=== PATIENT | male | born 1975 | race Caucasian/White ===

== ENCOUNTER 2023-08-25 15:02 | Emergency (ER) | payer OTHER, SELFPAY ==
[2023-08-25] VITALS (193 sets, daily range): BP systolic 104–201; BP diastolic 55–123; PULSE 63–88; RESP 12–35; O2SAT 87–96
--- NOTE | 2023-08-25 15:00 | DI.RAD_ITS ---
Exam(s) XR CHEST 2V PA LATERAL EXAM: XR CHEST 2V PA LATERAL CLINICAL HISTORY: chest pain TECHNIQUE: 2D digital imaging was performed of the chest. Two images were obtained. PA and lateral views were obtained. COMPARISON: No exams were available for comparison FINDINGS: MEDIASTINUM: Normal. HEART: Cardiomegaly. PULMONARY VASCULATURE: Normal. LUNGS: Clear. PLEURAL SPACE: No pleural effusion or pneumothorax. BONE:Within normal limits for the patient's age. OTHER FINDINGS:Normal. IMPRESSION: 1. No acute pulmonary findings. 2. Cardiomegaly. DATA REPOSITORY: RADIATION DOSE DELIVERED:
--- NOTE | 2023-08-25 15:00 | RT.EKG_ITS ---
APPROVED REPORT Exam: Resting ECG Reason for Exam: Chest Pain Patient Location: E HR:69 bpm ECG Measurements Heart Rate 69 AXIS IN 162 P 4 QRSd 95 QRS -13 QT 432 T 142 QTc 463 Conclusion Sinus rhythm...normal P axis, V-rate 60- 99 Abnormal T, consider ischemia, lateral leads...T <-0.20mV, I aVL V5 V6 sinus rhtyhm, left axis, normal intervals, t wave inverions I aVL V4 V5 V6
--- NOTE | 2023-08-25 15:00 | RT.EKG_ITS ---
APPROVED REPORT Exam: Resting ECG Reason for Exam: chest pain Patient Location: E HR:84 bpm ECG Measurements Heart Rate 84 AXIS OH 176 P 18 QRSd 99 QRS -29 QT 409 T 113 QTc 485 Conclusion Sinus rhythm...normal P axis, V-rate 60- 99 Probable LVH with secondary repol abnrm...multiple LVH criteria Physician: No stemi, improvement of t wave inversions in lateral leads
--- NOTE | 2023-08-25 15:15 | DI.RAD_ITS ---
Exam(s) XR SHOULDER LT COMPLETE 2+V EXAM: XR SHOULDER LT COMPLETE 2+V CLINICAL HISTORY: chroniic pain. TECHNIQUE: 2D digital imaging was performed. Three views. COMPARISON: CR XR SHOULDER RT COMPLETE 2+V from 08/25/2023 FINDINGS: BONES: No acute fracture is present. No bony destructive lesion is seen. JOINTS: No dislocation present. Widening of the AC joint with some adjacent cystic change. Findings could indicate acromioclavicular joint arthritis. Glenohumeral joint is maintained.. SOFT TISSUE: Normal. IMPRESSION: AC joint arthritis. DATA REPOSITORY: RADIATION DOSE DELIVERED:
--- NOTE | 2023-08-25 15:15 | DI.RAD_ITS ---
Exam(s) XR SHOULDER RT COMPLETE 2+V EXAM: XR SHOULDER RT COMPLETE 2+V CLINICAL HISTORY: chronic pain. TECHNIQUE: 2D digital imaging was performed. Five views. COMPARISON: No exams were available for comparison FINDINGS: BONES: No acute fracture is present. No bony destructive lesion is seen. JOINTS: No dislocation present. Minimal spurring at AC joint. Spurring at the rim of the glenoid. Glenohumeral joint space is maintained. SOFT TISSUE: Normal. IMPRESSION: Mild degenerative changes. DATA REPOSITORY: RADIATION DOSE DELIVERED:
--- NOTE | 2023-08-25 15:22 | W.ED.GENAD ---
Discharge Plan Discharge Details Chief Complaint: Chest Pain Clinical Impression: CHF (congestive heart failure), Non-ST elevation [place] (NSTEMI), Hypertension Primary Care Provider: None,None ED Provider: Franky Kennedy Home Meds and New Rx's Prescriptions: No Action No Known Home Meds HPI General Date/Time Provider Initiated Documentation: 08/25/23 15:07. HPI Narrative: 48-year-old male history of hypertension and obesity presents with substernal chest pain rating to neck has been intermittent over the last couple of days worse today, took 4 aspirin before arrival. Related Data Home Medications Medication Instructions Recorded Confirmed Unknown [No Known Home Meds] 08/25/23 08/25/23 Allergies Allergy/AdvReac Type Severity Reaction Status Date / Time No Known Allergies Allergy Unverified 08/25/23 15:12 General Stated Complaint: Chest Pain RICKIE: 2 Review of Systems Narrative: Review of Systems Constitutional: negative Eyes: negative ENT: negative Cardiovascular: Chest pain Respiratory: negative Gastrointestinal: negative : negative Musculoskeletal: negative Skin: negative Neurologic: negative Psych: negative Exam Narrative Exam Narrative: Physical Examination General: alert, awake, cooperative, resting comfortably, no acute distress HEENT: normocephalic, atraumatic; PERRL, EOM intact, conjunctiva normal; no nasal discharge; moist mucous membranes, oral and pharyngeal mucosa normal, tolerating secretions Neck: supple, trachea midline; full ROM Chest: normal to inspection Respiratory: normal respiratory effort, speaking in full sentences, clear to auscultation, no wheezing, rales or rhonchi Cardiac: regular rate, regular rhythm, S1S2 intact, no murmurs rubs or gallops GI: abdomen soft, non-tender, non-distended; no palpable mass or hepatosplenomegaly Skin: no lesions, rashes or trauma appreciated Neuro: AAOx3, normal speech, moving all extremities Extremities: Edema to bilateral ankles Psych: Appropriate mood and affect Course Vital Signs Vital signs: Vital Signs Pulse 68 08/25/23 15:06 Respiratory Rate 16 08/25/23 15:06 Blood Pressure 201/111 H 08/25/23 15:06 Temperature Source Temporal Artery Scan 08/25/23 15:06 Pulse 68 08/25/23 15:06 Respiratory Rate 18 08/25/23 15:13 Respiratory Effort Normal 08/25/23 15:13 Respiratory Depth Normal 08/25/23 15:13 Respiratory Pattern Normal 08/25/23 15:13 Blood Pressure 201/111 H 08/25/23 15:06 Blood Pressure Position Sitting 08/25/23 15:06 Oxygen Delivery Method Room Air 08/25/23 15:06 Oxygen Flow Rate 0 08/25/23 15:06 Pain Level 8 08/25/23 15:13 Medical Decision Making 48-year-old male history of obesity, hypertension, presents with chest pain over the last several days substernal radiating to neck worse today, noted to be hypertense on arrival, pale and diaphoretic; patient has pitting edema to bilateral ankles, EKG sinus rhythm left axis with T wave inversions lead I and aVL as well as V4 V5 V6 consider high lateral ischemia NSTEMI versus unstable angina versus aortic pathology such as aneurysm or dissection lower suspicion for PE or pneumothorax or pneumonia patient already took 4 x 81 mg aspirin will allow patient to get comfortable in bed will repeat blood pressure still persistently high will administer nitro sublingual will obtain basic labs troponin BNP electrolytes chest x-ray, patient requesting bilateral x-ray of his shoulders for chronic shoulder pain. 17: 24 evidence of NSTEMI given elevated troponin EKG changes and evidence of component of CHF. Have contacted [facility] to speak with cardiology for transfer for NSTEMI they are discussing case with cardiology team as they are at capacity, was able to speak with [facility] transfer center who are at capacity and were unable to connect me with cardiology they recommended calling back tomorrow. 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 Quality:SDOH Health Related Social Needs: No Data to Display PFSH All Active Problems (Updated 08/25/23 @ 17:43 by Franky Kennedy MD) Hypertension (Chronic) Non-ST elevation [place] (NSTEMI) (Acute) CHF (congestive heart failure) (Chronic) Social History Smoking/Tobacco Use Status: Never Smoking risk assessment performed?: Yes Alcohol Intake: never Drug use: Never Substance use type: does not use
[2023-08-25 15:24] LABS: Abs Immature Grans 0.02 10^3/uL (0.0-0.06); Absolute Basophil Count 0.06 10^3/uL (0.0-0.2); Absolute Eosinophil Count 0.19 10^3/uL (0.0-0.7); Absolute Lymphocyte Count 1.59 10^3/uL (1.2-3.4); Absolute Monocyte Count 0.86 10^3/uL (0.1-0.8); Absolute Neutrophil Count 6.14 10^3/uL (1.2-6.7); Basophils % 0.7 %; Eosinophils % 2.1 %; HCT 47.8 % (40.0-50.0); HGB 14.1 g/dL (13.5-17.5); Immature Grans % 0.2 %; Lymphocytes % 17.9 %; MCH 23.5 pg (27.0-33.0); MCHC 29.5 % (32.0-36.0); MCV 80 fL (80-95); Monocytes % 9.7 %; Neutrophils % 69.4 %; Platelet Count 247 10^3/uL (130-400); RBC 6.01 10^6/uL (4.36-5.78); RDW 18.4 % (11.8-14.1); RDW-SD 49.4 fL; WBC 8.86 10^3/uL (4.4-10.8)
[2023-08-25 15:38] LABS: INR 1.1 (0.9-1.1); PTT Activated 26.2 sec (23.6-32.8); Prothrombin Time 10.9 sec (9.1-11.1)
[2023-08-25 15:45] LABS: Diff Comment RBC Morph Reviewed
[2023-08-25 15:46] LABS: Anisocytosis 1+; Hypochromasia 1+
[2023-08-25 16:23] LABS: ALT 32 U/L (16-63); AST 24 U/L (15-37); Albumin 3.4 g/dL (3.4-5.0); Alkaline Phosphatase 72 U/L (46-116); Anion Gap 6.9 mmol/L (3-11); BUN 19 mg/dL (7-18); Bilirubin, Total 0.45 mg/dL (0.2-1.0); CO2 31.1 mmol/L (21.0-32.0); CREATININE 1.8 mg/dL (0.70-1.30); Chloride 103 mmol/L (98-107); Estimated GFR 45.57 (mL/min/1.73m2); Glucose 93 mg/dL (74-106); NT-proBNP 2528 pg/mL (<300); Potassium 3.3 mmol/L (3.5-5.1); Sodium 141 mmol/L (136-145); TSH (W/Ref FT4) 11.13 uIU/mL (0.36-3.74); Total Protein 7.5 g/dL (6.4-8.2)
[2023-08-25 16:25] LABS: Troponin I 113 ng/L (< or =60)
[2023-08-25 16:41] LABS: FREE T4 0.94 ng/dL (0.76-1.46)
[2023-08-25] MEDS: Atorvastatin 40 MG TAB 80 MG PO (17:20)
[2023-08-25] MEDS: Clopidogrel 300 MG TAB PO ×2 (17:20→19:05)
[2023-08-25] MEDS: Heparin in 0.45% NaCl 25,000 UNIT/250 ML BAG 10 UNIT IV (17:21)
[2023-08-25] MEDS: niCARdipine 25 MG in Normal Saline 240 ML 50 MG IV (17:23)
[2023-08-25] MEDS: Furosemide 40 MG/4 ML VIAL IVP (17:57)
[2023-08-25] MEDS: nitroGLYcerin 0.4 MG TAB SL (18:10)
[2023-08-25] MEDS: Furosemide 20 MG/2 ML VIAL IVP (18:28)
[2023-08-25 18:39] LABS: Troponin I 95 ng/L (< or =60)
[2023-08-25] MEDS: Aspirin 325 MG TAB PO (19:05)
[2023-08-25] MEDS: niCARdipine 25 MG in Normal Saline 240 ML 125 MG IV (20:10)
--- NOTE | 2023-08-25 21:10 | ED.PROG_ITS ---
Date of service: 08/25/23 Time of Service: 21:10 Medical Decision Making Patient was signed out to me by my colleague Dr. Damian Rogel. Please refer to his HPI, physical exam, assessment and plan. Patient has a history of hypertension, obesity, who presents today for evaluation of chest pain. Patient states that over the last day or so he has had substernal chest pain radiating to the neck center of his chest. He did take 4 aspirin prior to arrival. He denies any syncope, vomiting or diarrhea. He denies any tearing or ripping sensation. He was seen by my colleague and was noted to have notable hypertension with a blood pressure of 201/111. EKG demonstrated some T wave inversions and minimal depressions in the lateral leads, he was pale and diaphoretic upon arrival. Workup was started and demonstrated an elevated troponin, chest x-ray normal. Labs otherwise stable. He was slightly hypoxic a t 91% initially, he was started on 2 L of supplemental oxygen, because of his notable blood pressure and elevated troponin he was started on nicardipine drip for management of this which brought his pressure down to a normotensive level. He was given nitroglycerin which helped improve his chest pain. He was heparinized. [facility] [[email or web address] was contacted and recommends transfer they do not have any beds available at this time. [facility] was contacted as well and I discussed the case with Dr. Stevens, who also recommends transfer to another facility for prompt management. Did load with an additional 300 mg of Plavix here. He got 600 mg total as recommended by [facility]. He did initially get 40 of Lasix, but did get slightly more hypoxic and with his pitting edema 20 additional Lasix was given. He did get atorvastatin as well and is aspirin was received. She feels that the patient should get a cardiac catheterization secondary to his risk factor symptoms and EKG and troponin findings. I did discuss with the patient staying here until a bed opens up versus transfer, we also discussed risks and benefits of transfer versus staying for prolonged status here at [facility]. [facility] We did contact [facility] and I spoke with Dr. Samayoa, he agrees with the assessment and plan and accepts the patient for transfer. Patient will be transferred via medic level transport emergently secondary to his nicardipine and heparin drip, cardiac risk factors, and [facility]'s recommendations. I have extensively reviewed the treatment plan with the patient. I have addressed all patient concerns at this time. I have also discussed the plan with the admitting physician and they agree with the current assessment and plan and have agreed to assume responsibility for the patient. All parties demonstrate verbal understanding and agreement with our assessment and plan at this time. The documentation in this chart was dictated using [employer] dictation software. Please excuse any dictation errors. At time of transfer the patient was reassessed and continued to demonstrate No signs of acute respiratory distress requiring intubation, hemodynamic instability requiring pressor support, or rapidly declining mental status. Quality:SDOH Health Related Social Needs: No Data to Display Critical Care Time Critical Care Time Critical Care Time: Yes Total Critical Care Time: 60 Attestation: Upon my evaluation, this patient had a high probability of imminent or life- threatening deterioration, which required my direct attention, intervention, and personal management. I have personally provided 60 minutes of critical care time exclusive of time spent on separately billable procedures. Time includes review of laboratory data, radiology results, discussion with consultants, and monitoring for potential decompensation. Interventions were performed as documented. Sign Out Sign Out Data: Sign Out Comment: NSTEMI, CHF, [facility], [facility] not taking cases; nicard drip started, heparin started, lasix clopidogrel statin asa given Last updated by Franky Kennedy MD at 08/25/23 17:45 Discharge Plan Disposition Patient Disposition: Transfer-Acute Inpatient Care Specific Acute Inpt Facility: [facility] Condition: Serious Discharge Details Chief Complaint: Chest Pain Clinical Impression: CHF (congestive heart failure), Non-ST elevation [place] (NSTEMI), Hypertension Primary Care Provider: None,None ED Provider: Kendall Alcala Home Meds and New Rx's Prescriptions: No Action No Known Home Meds
[2023-08-25] MEDS: nitroGLYcerin 2% 1 INCH/1 GM PKT TP (22:04)
--- NOTE | 2023-08-25 22:09 | NUR.NOTE ---
Nursing Note:pt c/o pain, MD aware, new orders placed, pt has x1 inch nitro paste to right upper chest. awaiting for transport, ED nurse brannon rn will accompany the pt to [place] [facility]
--- NOTE | 2023-08-26 08:56 | NUR.NOTE ---
[facility] Duplicate order cancelled. Nursing Note:
== END 2023-08-25 23:45 | disposition short-term general hospital (02) ==
PROVIDERS: Emergency Medicine; Emergency Provider Student in an Organized Health Care Education/Training Program
DX: I21.4 Non-ST elevation (NSTEMI) myocardial infarction; I11.0 Hypertensive heart disease with heart failure; I50.9 Heart failure, unspecified; M25.512 Pain in left shoulder; M25.511 Pain in right shoulder; G89.29 Other chronic pain; E66.9 Obesity, unspecified; Z68.43 Body mass index [BMI] 50.0-59.9, adult
CPT/HCPCS: 00123; 36415; 80053; 93005; 96365; 96366; 96368; 96375; 96376; 99291; 71046; 73030; 83735; 83880; 84439; 84443; 84484; 85025; 85610; 85730; 93010; J1644; J1940; J1941; J2404